=== PATIENT | male | born 1955 | race Caucasian/White ===

== ENCOUNTER 2024-08-17 12:19 | Emergency (ER) | payer BC ==
[~2024-08-17] VITALS: Ht 177.8 cm; Wt 103.4 kg
[2024-08-17 12:28] VITALS: TEMP 98.5
[2024-08-17] MEDS: HYDROCODONE/APAP 5MG-325MG TAB PO ONE (12:51)
[2024-08-17] MEDS: KETOROLAC TROMETHAMINE 30 MG/ML VIAL IM ONE (12:51)
[2024-08-17] MEDS: DEXAMETHASONE SOD PHOS 10 MG/1 ML VIAL IM ONE (12:51)
[2024-08-17 13:01] VITALS: PULSE 104; RESP 16; O2SAT 99
[2024-08-17] MEDS ORDERED: ULTRAM 50MG50 MG PO (13:01)
[2024-08-17] MEDS ORDERED: MEDROL4 M2 PO (13:01)
== END 2024-08-17 13:05 | disposition home or self-care (01) ==
LOC: ER 12:32
DX: M79.605 Pain in left leg (principal); M54.32 Sciatica, left side; E11.9 Type 2 diabetes mellitus without complications; E78.5 Hyperlipidemia, unspecified; F17.210 Nicotine dependence, cigarettes, uncomplicated
CPT/HCPCS: 99283; J1100; J1885